=== PATIENT | female | born 1995 | race Caucasian/White ===

== ENCOUNTER 2017-09-05 03:19 | Emergency (ER) | payer SELFPAY ==
[~2017-09-05] VITALS: Ht 157.5 cm; Wt 75.0 kg
[~2017-09-05 03:19] MED LIST: FERR325C PO; IBUP-779 PO; MULT-1146 PO
[2017-09-05] MEDS ORDERED: ACETAMINOPHEN 325MG TABLET PO PRN (04:45)
[2017-09-05 05:05] LABS: BASOPHILS % 0.5 % (0.0-2.0); EOSINOPHILS % 2.3 % (0.0-5.0); HEMATOCRIT. 37.3 % (36.0-48.0); HEMOGLOBIN. 12.3 g/dL (12.0-16.0); LYMPHOCYTES % 37.7 % (20.0-50.0); MEAN CORPUSCULAR HEMOGLOBIN 25.1 pg (28.0-32.0); MEAN CORPUSCULAR VOLUME 76.1 fL (81.0-99.0); MEAN PLATELET VOLUME 8.2 fl (7.4-10.4); MONOCYTES % 7.9 % (2.0-8.0); NEUTROPHILS % 51.6 % (40.0-76.0); PLATELET 283 x1000/uL (130-400); RED CELL DISTRIBUTION WIDTH 14.4 % (11.6-14.6)
[2017-09-05 05:07] LABS: CHLORIDE 108 mEq/L (98-107)
[2017-09-05 05:30] LABS: B-HCG QUANTITATIVE 5562 mIU/mL (<3)
[2017-09-05 06:09] LABS: CLARITY URINE CLOUDY (CLEAR); COLOR URINE ORANGE (YELLOW); KETONES URINE NEGATIVE (NEGATIVE); LEUKOCYTE ESTERASE URINE 1+ (NEGATIVE); NITRITE URINE NEGATIVE (NEGATIVE); OCCULT BLOOD URINE 3+ (NEGATIVE); PH URINE 5.5 (4.5-8.0); PROTEIN URINE 1+ (NEGATIVE); SPECIFIC GRAVITY URINE 1.022 (1.005-1.030)
[2017-09-05 06:30] VITALS: BP 106/50
[2017-09-05] MEDS ORDERED: CEFTRIAXONE SODIUM 1 G/VIAL IM ONE ×2 (08:00→08:30)
[2017-09-05] MEDS ORDERED: LIDOCAINE HCL 1% 20ML VIAL (Pyxis) INJ INFIL ONE ×2 (08:00→08:30)
[2017-09-05] MEDS ORDERED: LIDOCAINE HCL/PF 1% 10 MG/ML 5ML VIAL IJ NR (08:36)
== END 2017-09-05 09:16 | disposition home or self-care (01) ==
LOC: ER 03:19
DX: O20.0 Threatened abortion (principal); O23.41 Unspecified infection of urinary tract in pregnancy, first trimester; Z3A.01 Less than 8 weeks gestation of pregnancy
CPT/HCPCS: 36415; 76801; 76817; 80053; 81003; 81025; 84702; 85025; 86850; 86900; 86901; 96372; 99285; J0696; J3490; Z7610

== ENCOUNTER 2024-03-17 22:48 | Emergency (ER) | payer MEDICAID ==
[~2024-03-17] VITALS: Ht 157.5 cm; Wt 88.0 kg
[2024-03-17 23:07] VITALS: O2SAT 100
[2024-03-17 23:27] VITALS: BP 118/76; PULSE 62; RESP 18; TEMP 98.4; O2SAT 99
== END 2024-03-18 03:58 | disposition left against medical advice (07) ==
LOC: ER 22:48
DX: M79.10 Myalgia, unspecified site (principal); Z53.21 Procedure and treatment not carried out due to patient leaving prior to being seen by health care provider
CPT/HCPCS: 99281